=== PATIENT | female | born 1965 | race Two or more races ===

== ENCOUNTER 2022-03-01 01:13 | Inpatient (IN) | payer OTHER ==
[2022-03-01] VITALS (28 sets, daily range): BP systolic 72–129; BP diastolic 42–78
[~2022-03-01] VITALS: Ht 152.4 cm; Wt 54.4 kg
--- NOTE | 2022-03-01 01:20 | NUR ---
[id number] FROM [facility] FOR SOB. DX WITH PNEUMONIA TODAY. SATTING 88% RA ON 4L 97% NC. PATIENT IN BED 07 ON MONITOR AND POX AWAITING MD CALDERON.
[2022-03-01] MEDS ORDERED: PIPERACILLIN /TAZOBACTAM 3.375 G VIAL IV ONE (01:25)
[2022-03-01] MEDS ORDERED: VANCOMYCIN 1 GM VIAL ONE (01:25)
[2022-03-01] MEDS ORDERED: VANCOMYCIN 1 GM in IV D5W 250 ML IV ONE (01:30)
[2022-03-01] MEDS ORDERED: PIPERACILLIN /TAZOBACTAM 3.375 G in IV D5W 50 ML IV ONE (01:30)
--- NOTE | 2022-03-01 01:30 | NUR ---
COVID SWAB DONE AND SENT TO LAB
--- NOTE | 2022-03-01 01:30 | NUR ---
BLOOD AND CULTURES COLLECTED AND SENT TO LAB
--- NOTE | 2022-03-01 01:50 | NUR ---
INSERTED 16FR FC. URINE COLLECTED AND SENT TO LAB
--- NOTE | 2022-03-01 01:55 | NUR ---
ONCOLOGY COORDINATOR AT PT'S BEDSIDE
[2022-03-01 01:58] LABS: BASOPHILS % (AUTO) 0.5 % (0.0-2.0); HEMATOCRIT 41 % (33-45); HEMOGLOBIN 13.8 g/dL (11.5-14.8); LYMPHOCYTES # (AUTO) 1.1 K/uL (0.8-4.8); LYMPHOCYTES % (AUTO) 21.6 % (20.0-44.0); MEAN CORPUSCULAR HGB CONC 34 g/dl (31.0-36.0); MEAN CORPUSCULAR VOLUME 96 fL (82-100); MONOCYTES # (AUTO) 0.3 K/uL (0.1-1.30); MONOCYTES % (AUTO) 6.2 % (2.0-12.0); NEUTROPHILS # (AUTO) 3.5 K/uL (1.8-8.9); NEUTROPHILS % (AUTO) 71.7 % (43.0-81.0); PLATELET COUNT (AUTO) 274 K/uL (150-450); RED BLOOD CELL COUNT(AUTO) 4.26 MIL/uL (4.0-5.2); WHITE BLOOD COUNT (AUTO) 4.9 K/uL (4.3-11.0)
[2022-03-01 02:10] LABS: CALCIUM, SERUM 9.1 mg/dL (8.5-10.1); CARBON DIOXIDE 23 mmol/L (21-32); CHLORIDE 113 mmol/L (98-107); CREATININE 0.9 mg/dL (0.6-1.3); GLUCOSE 149 mg/dL (74-106); POTASSIUM 3.4 mmol/L (3.5-5.1); SODIUM SERUM 152 mmol/L (136-145); UREA NITROGEN, BLOOD 16 mg/dL (7-18)
[2022-03-01 02:24] LABS: ALANINE AMINOTRANSFERASE 24 U/L (12-78); ALKALINE PHOSPHATASE 41 U/L (46-116); ASPARTATE AMINOTRANSFERASE 12 U/L (15-37); BILIRUBIN,DIRECT 0.2 mg/dL (0.0-0.2); BILIRUBIN,TOTAL 0.9 mg/dL (0.2-1.0); TOTAL PROTEIN, SERUM 8.1 g/dL (6.4-8.2)
--- NOTE | 2022-03-01 02:24 | NUR ---
LACTIC ACID 2.1; DR. SHANT OCHOA AWARE
[2022-03-01 02:29] LABS: BILIRUBIN,URINE NEGATIVE (NEGATIVE); COLOR,URINE YELLOW (YELLOW); LEUKOCYTE ESTERASE ,URINE NEGATIVE (NEGATIVE); NITRITE, URINE NEGATIVE (NEGATIVE); PH,URINE 5.5 (5.0-8.0); PROTEIN,URINE 100 mg/dl (NEGATIVE); UGLUCOSE NEGATIVE (NEGATIVE)
[2022-03-01] MEDS ORDERED: SENN-18 PO (03:54)
[2022-03-01] MEDS ORDERED: RISP1TAB7 PO (03:54)
[2022-03-01] MEDS ORDERED: RISP0.5T65 PO (03:54)
[2022-03-01] MEDS ORDERED: APIX2.5T PO (03:54)
[2022-03-01] MEDS ORDERED: CYAN-51 PO (03:54)
[2022-03-01] MEDS ORDERED: LEVO25TA7 PO (03:54)
[2022-03-01] MEDS ORDERED: DOCU-141 PO (03:54)
[2022-03-01] MEDS ORDERED: IPRA3AMP23 IH ×2 (03:54→07:33)
[2022-03-01] MEDS ORDERED: AZIT250T13 PO (03:54)
[2022-03-01] MEDS ORDERED: CEFT1VIA15 IV (03:54)
[2022-03-01] MEDS ORDERED: MIRT-119 PO (03:54)
[2022-03-01] MEDS ORDERED: ASCO500T21 PO (03:54)
[2022-03-01] MEDS ORDERED: MEGE400O4 PO (03:54)
[2022-03-01] MEDS ORDERED: FAMO20TA8 PO (03:54)
[2022-03-01] MEDS ORDERED: MULT-447 PO (03:54)
--- NOTE | 2022-03-01 04:18 | NUR ---
DR. FERRIS DO ON PHONE CALL WITH DR. DALEY
[2022-03-01] MEDS ORDERED: IV NS 0.9% 1,000 ML BAG IV ONE (04:30)
[2022-03-01] MEDS ORDERED: IV NS 0.9% 1,000 ML IV PRN (05:30)
[2022-03-01] MEDS ORDERED: ACETAMINOPHEN 325 MG TABLET PO PRN ×2 (05:30→09:00)
--- NOTE | 2022-03-01 05:41 | NUR ---
PRINT SHOP MANAGER AT PT'S BEDSIDE
[2022-03-01 05:56] LABS: BASOPHILS % (AUTO) 0.7 % (0.0-2.0); EOSINOPHILS % (AUTO) 0.1 % (0.0-6.0); HEMATOCRIT 38 % (33-45); HEMOGLOBIN 12.7 g/dL (11.5-14.8); LYMPHOCYTES # (AUTO) 0.8 K/uL (0.8-4.8); LYMPHOCYTES % (AUTO) 17.8 % (20.0-44.0); MEAN CORPUSCULAR HGB CONC 33 g/dl (31.0-36.0); MEAN CORPUSCULAR VOLUME 97 fL (82-100); MONOCYTES # (AUTO) 0.4 K/uL (0.1-1.30); NEUTROPHILS # (AUTO) 3.4 K/uL (1.8-8.9); NEUTROPHILS % (AUTO) 72.4 % (43.0-81.0); PLATELET COUNT (AUTO) 250 K/uL (150-450); RED BLOOD CELL COUNT(AUTO) 3.93 MIL/uL (4.0-5.2); WHITE BLOOD COUNT (AUTO) 4.6 K/uL (4.3-11.0)
--- NOTE | 2022-03-01 06:10 | NUR ---
CONSTRUCTION IRONWORKER HELPER CLOSING NOTE: PT NONVERBAL AND RESPONSIVE. TOLERATING 4LPM VIA SIMPLE MASK AT 98%. RESP EVEN AND NONLABORED. TELE MONITOR READS NSR 87 HR. RFA #24G S/L AND LFA #18G S/L @ 100ML/HR PATENT AND INTACT. F/C 16FR PATENT AND INTACT; DRAINING YELLOW URINE WELL. SMALL BM NOTED. PT KEPT CLEAN AND DRY. OPEN SKIN NOTED TO RIGHT BUTTOCK& REPOSITIONED PT. SAFETY MEASURES IN PLACE.
[2022-03-01 07:02] LABS: CALCIUM, SERUM 8.6 mg/dL (8.5-10.1); CREATININE 0.8 mg/dL (0.6-1.3); POTASSIUM 3.1 mmol/L (3.5-5.1)
[2022-03-01] MEDS ORDERED: ACET-868 PO (07:33)
[2022-03-01] MEDS ORDERED: RISP0.2515 PO ×2 (07:33)
[2022-03-01] MEDS ORDERED: MAGN400O6 PO (07:33)
[2022-03-01] MEDS ORDERED: BISA10SU11 RC (07:33)
[2022-03-01] MEDS ORDERED: ONDA4TAB5 PO (07:33)
[2022-03-01] MEDS ORDERED: NA P133E RC (07:33)
[2022-03-01] MEDS ORDERED: TRAM-351 PO (07:33)
--- NOTE | 2022-03-01 07:49 | NUR ---
GOING TO 311.2
--- NOTE | 2022-03-01 07:53 | NUR ---
report given to Elizabeth CRUZ to continue care.
--- NOTE | 2022-03-01 08:30 | NUR ---
GARNISHER NOTES RECEIVED PT FROM E.R. STAFF VIA DEYA, PT IS AWAKE, ABLE TO TRACK, NO SIGN OF PAIN OR DISTRESS, ASSISTED TO BED, PT IS NON VERBAL, MADE COMFORTABLE, ON O2 AT 4LPM VIA N/C WITH O2 SAT OF 100%, VITALS TAKEN AND RECORDED, ADMITTING ORDERS RECEIVED FROM DR. DALEY.
--- NOTE | 2022-03-01 08:50 | NUR ---
CRISIS THERAPIST NOTES PT SEEN AND EXAMINED BY DR. DALEY, ORDERS GIVEN.
[2022-03-01] MEDS ORDERED: Medication Not On Formulary EA (Ipratropium/Albuterol Sulfate (Duoneb 2.5-0.5 Mg/3 Ml So IH PRN (09:00)
[2022-03-01] MEDS ORDERED: FAMOTIDINE (20 MG) 20 MG TABLET PO SCH (09:00)
[2022-03-01] MEDS ORDERED: APIXABAN 2.5 MG TABLET PO SCH (09:00)
[2022-03-01] MEDS ORDERED: IV NS 0.9% 500 ML IV ONE ×2 (09:00→19:00)
--- NOTE | 2022-03-01 09:00 | NUR ---
DRYING ROOM ATTENDANT NOTES PT SEEN AND EXAMINED BY LUÍS FONSECA, RECOMMENDATIONS GIVEN, DR. DALEY INFORMED.
[2022-03-01] MEDS: ENOXAPARIN SODIUM 40 MG/0.4 ML DISP.SYRIN SQ SCH (09:52)
[2022-03-01] MEDS: Potassium Chloride 20 MEQ in IV D5/0.45 NACL 1,000 ML IV SCH ×2 (09:53→18:53)
[2022-03-01] MEDS ORDERED: PIPERACILLIN /TAZOBACTAM 3.375 G in IV D5W 50 ML IV SCH (10:00)
[2022-03-01] MEDS: POTASSIUM CHLORIDE 10 MEQ/50 ML PREMIXED IVPB FOR PERIPHERAL LINE IV SCH ×4 (10:26→21:42)
[2022-03-01] MEDS: PIPERACILLIN /TAZOBACTAM 3.375 G in IV D5W 100 ML IV SCH ×2 (10:56→18:08)
[2022-03-01] MEDS ORDERED: ALBUTEROL FS 2.5 MG/0.5 ML VIAL.NEB NEB PRN (13:30)
[2022-03-01] MEDS ORDERED: IPRATROPIUM NEB FS 0.5 MG/2.5 ML AMPUL.NEB NEB PRN (13:30)
[2022-03-01] MEDS ORDERED: IV NS 0.9% 250 ML IV ONE (13:40)
[2022-03-01] MEDS ORDERED: IOHEXOL-350 100 ML VIAL IV ONE (13:40)
[2022-03-01] MEDS ORDERED: CT SWABBABLE VALVE TRANS SET 1 EA INFUS.SET MC ONE (13:40)
--- NOTE | 2022-03-01 13:43 | NUR ---
HORSE GROOMER NOTES ORDER RECEIVED FOR CT PULMONARY ANGIOGRAPHY, CONSENT OBTAINED FROM PT'S SISTER HERO MOSQUEDA VIA PHONE, VERIFIED WITH GERALD CRUZ.
[2022-03-01] MEDS ORDERED: VANCOMYCIN 0.75 GM in IV D5W 250 ML IV SCH (14:00)
--- NOTE | 2022-03-01 15:33 | NUR ---
HABILITATION WORKER NOTES CT PULMONARY ANGIO RESULT SENT TO DR. DALEY, NO NEW ORDER GIVEN.
[2022-03-01] MEDS ORDERED: IV 1/2NS 1000 ML 500 ML IV ONE (16:00)
--- NOTE | 2022-03-01 16:00 | NUR ---
MASTER OF CEREMONIES NOTES BP 84/54, NOT IN DISTRESS, DR. DALEY ORDERED TO GIVE 1/2 NS 500 ML BOLUS.
[2022-03-01] MEDS: ALBUTEROL FS 2.5 MG/0.5 ML VIAL.NEB NEB SCH ×2 (16:33→23:30)
[2022-03-01] MEDS: IPRATROPIUM NEB FS 0.5 MG/2.5 ML AMPUL.NEB NEB SCH ×2 (16:33→23:30)
--- NOTE | 2022-03-01 18:30 | NUR ---
RN NOTES RECEIVED PT FROM 3W IN ROOM 259 ICU STATUS , PT OPENS EYES TO PAINFUL STIMULI, ANSWER TO YES AND NO QUESTION , PT ON 2L N/C , RESPIRATION EVEN AND UNLABORED , SBP IN LOW 80'S , ON TELE SB HR IN 50'S , DR DALEY NOTIFED REGRADING PT'S STATUS , NEW ORDER RECEIVED , CONTINUE TO MONITOR .
--- NOTE | 2022-03-01 18:45 | NUR ---
INLAYER NOTES PT IS AROUSABLE TO NAME AND PAIN, ON O2 AT 4LPM VIA N/C WITH O2 SAT OF 98%, PT'S CURRENT BP 82/48 HR 61 AFTER BOLUS, DR. DALEY INFORMED, ORDERS RECEIVED TO TRANSFER PT TO ICU VIA ACLS PROTOCOL, PT RECEIVED BY PROCESS PLANT OPERATOR KIANNA FOR CONTINUITY OF CARE.
[2022-03-01] MEDS: NOREPINEPHRINE 8 MG in IV NS 0.9% 242 ML IV PRN (18:55)
[2022-03-01] MEDS: IV NS 0.9% 250 ML IV PRN (21:22)
[2022-03-02] VITALS (80 sets, daily range): BP systolic 67–126; BP diastolic 38–80
[2022-03-02] MEDS: PIPERACILLIN /TAZOBACTAM 3.375 G in IV D5W 100 ML IV SCH ×3 (01:32→17:16)
[2022-03-02 04:58] LABS: CALCIUM, SERUM 7.7 mg/dL (8.5-10.1); CREATININE 0.6 mg/dL (0.6-1.3); POTASSIUM 2.9 mmol/L (3.5-5.1)
[2022-03-02] MEDS: Potassium Chloride 20 MEQ in IV D5/0.45 NACL 1,000 ML IV SCH ×2 (05:16→15:06)
--- NOTE | 2022-03-02 07:21 | NUR ---
RN NOTES ENDORSED CARE OF PATIENT TO AM NURSE, PATIENT IS IN BED, NON-INTERRACTIVE, HISTORY OF DOWN SYNDROME. PATIENT IS ON O2 THERAPY VIA NC AT 3 L/MIN, NO RESPIRATORY DISTRESS NOTED. PICC LINE INSERTION FOR LEVO DRIP DURING THIS SHIFT. LEVO DRIP CURRENTLY RUNNING AT 0.1 MCG/KG/MIN. COTO CATH IN PLACE, TOTAL URINE OUTPUT FOR SHIFT IS 1,300 ML. NO SIGNIFICANT FINDINGS UPON ALL NURSING ASSESSMENTS. ENDORSED CARE OF PATIENT TO AM NURSE FOR RAZ.
--- NOTE | 2022-03-02 07:27 | NUR ---
WOUND CARE CONSULT: PT PRESENTS WITH SCARRING TO BILATERAL HEELS AND SACRAL INTACT DEEP TISSUE INJURY WITH SURROUNDING SCARRING, PRESENT ON ADMISSION. PT IS INCONTINENT OF STOOL. CHICA BLUNT NOTED. RECOMMENDATIONS MADE FOR SKIN PROTECTION. DISCUSSED WITH NURSING STAFF. IN AGREEMENT WITH PLAN OF CARE. Addendum: 03/02/22 at 0728 by LATA ALEX WNDNU Amended: Links added.
[2022-03-02] MEDS ORDERED: LEVOTHYROXINE SODIUM 25 MCG TABLET PO SCH (07:30)
[2022-03-02] MEDS ORDERED: Z GUARD REMEDY 4 OZ OINT TP PRN (07:30)
--- NOTE | 2022-03-02 07:30 | NUR ---
RN NOTES PT FOUND SEMI FOWLERS DISPLAYING NO S/S OF DISTRESS, FLACC = 0 AND BREATHING IS EVEN AND UNLABORED ON 3L O2 NC. R UA PICC IS PATIENT AND INTACT. COTO CATH RESERVOIR BELOW PATIENT DRAINING BY GRAVITY. RN WILL CONTINUE CARE PLAN AND ANTICIPATE NEEDS. SAFETY MEASURES IN PLACE, BED LOCKED AND IN LOWEST POSITION, SIDE RAILS UPX2, CALL LIGHT WITHIN REACH, BED ALARM ARMED.
[2022-03-02] MEDS: ALBUTEROL FS 2.5 MG/0.5 ML VIAL.NEB NEB SCH ×3 (08:13→23:29)
[2022-03-02] MEDS: IPRATROPIUM NEB FS 0.5 MG/2.5 ML AMPUL.NEB NEB SCH ×3 (08:13→23:29)
[2022-03-02] MEDS: Z GUARD REMEDY 4 OZ OINT TP SCH (08:30)
--- NOTE | 2022-03-02 08:30 | NUR ---
MD COMMUNICATION RN SPOKE TO MD DALEY, GAVE ORDERS: KEEP NPO FOR 24 HOURS, WILL ASSESS NEED FOR NGT ON 03/03. ALSO WANTED PROTOCOL FOR LEVOPHED TITRATION TO BE KEEP SBP > 90. RN ACKNOWLEDGED AND WILL EXECUTE ORDERS.
[2022-03-02] MEDS: ENOXAPARIN SODIUM 40 MG/0.4 ML DISP.SYRIN SQ SCH (08:31)
[2022-03-02] MEDS: POTASSIUM CHLORIDE 10 MEQ/50 ML PREMIXED IVPB FOR PERIPHERAL LINE IV SCH ×6 (09:02→14:36)
[2022-03-02] MEDS: NOREPINEPHRINE 8 MG in IV NS 0.9% 242 ML IV PRN (16:56)
--- NOTE | 2022-03-02 19:30 | NUR ---
RN NOTES PT LAYING SEMI FOWLERS ON BED DISPLAYING NO S/S OF DISTRESS, FLACC = 0 AND BREATHING IS EVEN AND UNLABORED ON RA. R UA PICC IS PATIENT AND INTACT. COTO CATHETER IS PATENT AND DRAINING BELOW THE BLADDER. PT A&OX1-2. ALL SAFETY FALL PRECAUTIONS IN PLACE, BED LOCKED AND IN LOWEST POSITION, SIDE RAILS UPX2, BED ALARM ON, CALL LIGHT WITHIN REACH, BED. WILL CONTINUE TO MONITOR.
--- NOTE | 2022-03-02 19:50 | NUR ---
RN NOTES PT FOUND SEMI FOWLERS DISPLAYING NO S/S OF DISTRESS, FLACC = 0 AND BREATHING IS EVEN AND UNLABORED ON RA. R UA PICC IS PATIENT AND INTACT. COTO CATH RESERVOIR BELOW PATIENT DRAINING BY GRAVITY. PT MORE ALERT COMPARED TO MORNING, INTERACTING MORE WITH ENVIRONMENT. SBAR AND REPORT GIVEN TO JAVA LEAD ENGINEER RN, ALL QUESTIONS ANSWERED. SAFETY MEASURES IN PLACE, BED LOCKED AND IN LOWEST POSITION, SIDE RAILS UPX2, CALL LIGHT WITHIN REACH, BED ALARM ARMED. PT ENDORSED IN STABLE CONDITION FOR RAZ.
--- NOTE | 2022-03-02 20:00 | NUR ---
RN/NOTE COOLING MEASURES WERE PROVIDED. BLANKET WAS REMOVED, AND ICE PACK WAS PROVIDED.
[2022-03-03] VITALS (77 sets, daily range): BP systolic 73–136; BP diastolic 28–81
[2022-03-03] MEDS: PIPERACILLIN /TAZOBACTAM 3.375 G in IV D5W 100 ML IV SCH ×3 (01:08→18:13)
[2022-03-03] MEDS: Potassium Chloride 20 MEQ in IV D5/0.45 NACL 1,000 ML IV SCH ×3 (01:08→22:07)
[2022-03-03 04:57] LABS: BASOPHILS % (AUTO) 0.6 % (0.0-2.0); EOSINOPHILS % (AUTO) 0.9 % (0.0-6.0); HEMATOCRIT 34 % (33-45); HEMOGLOBIN 11.4 g/dL (11.5-14.8); LYMPHOCYTES # (AUTO) 1.3 K/uL (0.8-4.8); LYMPHOCYTES % (AUTO) 19.3 % (20.0-44.0); MEAN CORPUSCULAR HGB CONC 34 g/dl (31.0-36.0); MEAN CORPUSCULAR VOLUME 96 fL (82-100); MONOCYTES # (AUTO) 0.5 K/uL (0.1-1.30); MONOCYTES % (AUTO) 7.6 % (2.0-12.0); NEUTROPHILS % (AUTO) 71.6 % (43.0-81.0); PLATELET COUNT (AUTO) 240 K/uL (150-450); RED BLOOD CELL COUNT(AUTO) 3.53 MIL/uL (4.0-5.2)
[2022-03-03 05:26] LABS: CALCIUM, SERUM 7.7 mg/dL (8.5-10.1); CREATININE 0.7 mg/dL (0.6-1.3); MAGNESIUM 1.3 mg/dL (1.8-2.4); POTASSIUM 4.1 mmol/L (3.5-5.1)
--- NOTE | 2022-03-03 07:30 | NUR ---
RN NOTES PT FOUND SEMI FOWLERS DISPLAYING NO S/S OF DISTRESS, FLACC = 0 AND BREATHING IS EVEN AND UNLABORED ON RA. R UA PICC IS PATIENT AND INTACT. COTO CATH RESERVOIR BELOW PATIENT DRAINING BY GRAVITY. LEARNING FACILITATOR RN GAVE SBAR AND REPORT. RN WILL CONTINUE CARE PLAN AND ANTICIPATE NEEDS. SAFETY MEASURES IN PLACE, BED LOCKED AND IN LOWEST POSITION, SIDE RAILS UPX2, CALL LIGHT WITHIN REACH, BED ALARM ARMED.
[2022-03-03] MEDS: IPRATROPIUM NEB FS 0.5 MG/2.5 ML AMPUL.NEB NEB SCH ×3 (08:05→23:32)
[2022-03-03] MEDS: ALBUTEROL FS 2.5 MG/0.5 ML VIAL.NEB NEB SCH ×3 (08:05→23:32)
[2022-03-03] MEDS: Magnesium 1GM/D5W 100ML PREMIX 100 ML IV SCH ×3 (08:50→10:55)
[2022-03-03] MEDS: Z GUARD REMEDY 4 OZ OINT TP SCH (08:51)
[2022-03-03] MEDS: ENOXAPARIN SODIUM 40 MG/0.4 ML DISP.SYRIN SQ SCH (08:51)
--- NOTE | 2022-03-03 10:00 | NUR ---
MD COMMUNICATION RN INFORMED DR DALEY OF RESULTS FROM [facility]. STATED TO NOT START NGT. RN ACKNOWLEDGED AND WILL NOT INSERT NGT.
[2022-03-03] MEDS: NOREPINEPHRINE 8 MG in IV NS 0.9% 242 ML IV PRN (18:44)
--- NOTE | 2022-03-03 19:15 | NUR ---
RN NOTES PT FOUND SEMI FOWLERS DISPLAYING NO S/S OF DISTRESS, FLACC = 0 AND BREATHING IS EVEN AND UNLABORED ON RA. R UA PICC IS PATIENT AND INTACT. COTO CATH RESERVOIR BELOW PATIENT DRAINING BY GRAVITY. SBAR AND REPORT GIVEN TO MEDICAL RECORDS FIELD TECHNICIAN, ALL QUESTIONS ANSWERED. SAFETY MEASURES IN PLACE, BED LOCKED AND IN LOWEST POSITION, SIDE RAILS UPX2, CALL LIGHT WITHIN REACH, BED ALARM ARMED. PT ENDORSED IN STABLE CONDITION FOR RAZ.
[2022-03-04] VITALS (87 sets, daily range): BP systolic 51–151; BP diastolic 20–102
--- NOTE | 2022-03-04 01:30 | NUR ---
ICU/SHOP TAILOR STENCIL MAKER NURSE WAS TITRATING UP THE LEVO FOR LOW BLOOD PRESSURE. WILL CONTINUE TO MONITOR THIS PT AND HER BLOOD PRESSURE.
[2022-03-04] MEDS: PIPERACILLIN /TAZOBACTAM 3.375 G in IV D5W 100 ML IV SCH ×3 (01:57→17:08)
[2022-03-04 04:46] LABS: BASOPHILS % (AUTO) 0.3 % (0.0-2.0); EOSINOPHILS % (AUTO) 1.6 % (0.0-6.0); HEMATOCRIT 36 % (33-45); HEMOGLOBIN 12.2 g/dL (11.5-14.8); LYMPHOCYTES # (AUTO) 1.8 K/uL (0.8-4.8); LYMPHOCYTES % (AUTO) 33.7 % (20.0-44.0); MEAN CORPUSCULAR HGB CONC 34 g/dl (31.0-36.0); MEAN CORPUSCULAR VOLUME 95 fL (82-100); MONOCYTES # (AUTO) 0.5 K/uL (0.1-1.30); MONOCYTES % (AUTO) 8.7 % (2.0-12.0); NEUTROPHILS # (AUTO) 2.9 K/uL (1.8-8.9); NEUTROPHILS % (AUTO) 55.7 % (43.0-81.0); PLATELET COUNT (AUTO) 256 K/uL (150-450); RED BLOOD CELL COUNT(AUTO) 3.82 MIL/uL (4.0-5.2); WHITE BLOOD COUNT (AUTO) 5.3 K/uL (4.3-11.0)
[2022-03-04 05:00] LABS: CREATININE 0.6 mg/dL (0.6-1.3); MAGNESIUM 2.4 mg/dL (1.8-2.4); POTASSIUM 3.5 mmol/L (3.5-5.1)
[2022-03-04] MEDS: IPRATROPIUM NEB FS 0.5 MG/2.5 ML AMPUL.NEB NEB SCH ×3 (07:13→23:15)
[2022-03-04] MEDS: ALBUTEROL FS 2.5 MG/0.5 ML VIAL.NEB NEB SCH ×3 (07:13→23:15)
[2022-03-04] MEDS: Potassium Chloride 20 MEQ in IV D5/0.45 NACL 1,000 ML IV SCH ×2 (08:45→16:50)
[2022-03-04] MEDS: Z GUARD REMEDY 4 OZ OINT TP SCH (08:46)
[2022-03-04] MEDS: ENOXAPARIN SODIUM 40 MG/0.4 ML DISP.SYRIN SQ SCH (08:46)
--- NOTE | 2022-03-04 09:00 | NUR ---
ICU/RN DR DALEY SEEN THE PT .PT IS DNR.OK TO GIVE IV MEDS TO SUPPORT BP. PER FAMILY NO INTUBATION AND NO TUBE FEEDING.
[2022-03-04] MEDS: NOREPINEPHRINE 8 MG in IV NS 0.9% 242 ML IV PRN (14:07)
[2022-03-04] MEDS: IV NS 0.9% 250 ML IV PRN (16:52)
--- NOTE | 2022-03-04 18:00 | NUR ---
ICU/RN DUE MEDS ARE GIVEN ORDERED.PM CARE PROVIDED.PT IS ON LEVOPHED DRIP.AND IV FLUIDS.REPOSITION FOR COMFORT.
[2022-03-05] VITALS (96 sets, daily range): BP systolic 64–128; BP diastolic 26–87
[2022-03-05] MEDS: PIPERACILLIN /TAZOBACTAM 3.375 G in IV D5W 100 ML IV SCH ×3 (02:07→17:00)
[2022-03-05] MEDS: Potassium Chloride 20 MEQ in IV D5/0.45 NACL 1,000 ML IV SCH ×2 (06:24→21:48)
[2022-03-05] MEDS: IPRATROPIUM NEB FS 0.5 MG/2.5 ML AMPUL.NEB NEB SCH ×3 (08:06→23:43)
[2022-03-05] MEDS: ALBUTEROL FS 2.5 MG/0.5 ML VIAL.NEB NEB SCH ×3 (08:06→23:43)
[2022-03-05] MEDS: ENOXAPARIN SODIUM 40 MG/0.4 ML DISP.SYRIN SQ SCH (09:00)
[2022-03-05] MEDS: Z GUARD REMEDY 4 OZ OINT TP SCH (09:00)
[2022-03-05] MEDS: NOREPINEPHRINE 8 MG in IV NS 0.9% 242 ML IV PRN (14:51)
--- NOTE | 2022-03-05 18:10 | NUR ---
RN CLOSING NOTE PT IN BED RESTING, PT IS A/O X 1-2. DELAYED, SOME VERBAL, LIMITED SPEECH. PT ON RA SATING AT 98%. TELE READS SR/SB. IV ACCESS NOTED ON JOSE PICC AND LFA 18G. INTACT AND PATENT RUNNING LEVO AT 0.1 MCG/KG/MIN. ALL SAFETY MEASURES IN PLACE, FALL PRECAUTIONS IN PLACE, WILL ENDORSE TO REAL ESTATE FINANCIAL ANALYST RN FOR RAZ.
[2022-03-06] VITALS (94 sets, daily range): BP systolic 81–147; BP diastolic 24–80
[2022-03-06] MEDS: PIPERACILLIN /TAZOBACTAM 3.375 G in IV D5W 100 ML IV SCH ×3 (02:02→17:25)
[2022-03-06 04:51] LABS: BASOPHILS # (AUTO) 0.1 K/uL (0.0-0.2); BASOPHILS % (AUTO) 1.2 % (0.0-2.0); EOSINOPHILS % (AUTO) 2.3 % (0.0-6.0); HEMATOCRIT 35 % (33-45); HEMOGLOBIN 11.6 g/dL (11.5-14.8); LYMPHOCYTES # (AUTO) 2.1 K/uL (0.8-4.8); LYMPHOCYTES % (AUTO) 44.9 % (20.0-44.0); MEAN CORPUSCULAR HGB CONC 33 g/dl (31.0-36.0); MEAN CORPUSCULAR VOLUME 97 fL (82-100); MONOCYTES # (AUTO) 0.6 K/uL (0.1-1.30); MONOCYTES % (AUTO) 12.1 % (2.0-12.0); NEUTROPHILS # (AUTO) 1.8 K/uL (1.8-8.9); NEUTROPHILS % (AUTO) 39.5 % (43.0-81.0); PLATELET COUNT (AUTO) 315 K/uL (150-450); RED BLOOD CELL COUNT(AUTO) 3.64 MIL/uL (4.0-5.2); WHITE BLOOD COUNT (AUTO) 4.6 K/uL (4.3-11.0)
[2022-03-06 05:05] LABS: CALCIUM, SERUM 8.3 mg/dL (8.5-10.1); CREATININE 0.7 mg/dL (0.6-1.3); MAGNESIUM 1.8 mg/dL (1.8-2.4); POTASSIUM 3.3 mmol/L (3.5-5.1)
[2022-03-06 05:45] LABS: THYROID STIMULATING HORMONE 7.343 uIU/mL (0.358-3.74)
[2022-03-06] MEDS: IPRATROPIUM NEB FS 0.5 MG/2.5 ML AMPUL.NEB NEB SCH ×3 (07:33→23:41)
[2022-03-06] MEDS: ALBUTEROL FS 2.5 MG/0.5 ML VIAL.NEB NEB SCH ×3 (07:33→23:41)
[2022-03-06] MEDS: Z GUARD REMEDY 4 OZ OINT TP SCH (09:24)
[2022-03-06] MEDS: ENOXAPARIN SODIUM 40 MG/0.4 ML DISP.SYRIN SQ SCH (09:27)
[2022-03-06] MEDS: POTASSIUM CL. PREMIX PERIPHER. 50 ML IV SCH ×2 (10:06→11:09)
[2022-03-06] MEDS: NOREPINEPHRINE 8 MG in IV NS 0.9% 242 ML IV PRN (10:07)
[2022-03-06] MEDS: HYDROCORTISONE SOD SUCCINATE 100 MG/2 ML VIAL IV SCH ×2 (12:15→21:37)
[2022-03-06] MEDS: Potassium Chloride 20 MEQ in IV D5/0.45 NACL 1,000 ML IV SCH (12:15)
[2022-03-06] MEDS ORDERED: POTASSIUM CHLORIDE 10 MEQ/50 ML PREMIXED IVPB FOR PERIPHERAL LINE IV SCH (12:30)
[2022-03-06] MEDS: POTASSIUM CHLORIDE 10 MEQ/50 ML PREMIXED IVPB FOR PERIPHERAL LINE IV SCH ×2 (12:53→13:54)
[2022-03-06] MEDS: IV NS 0.9% 250 ML IV PRN (13:55)
--- NOTE | 2022-03-06 17:07 | NUR ---
PT. NO SIGNIFICANT CHANGES NOTED AT THIS TIME; ALL NEEDS ATTENDED; BEDSIDE REPORT GIVEN TO YUE-RN FOR CONTINUITY OF CARE.
--- NOTE | 2022-03-06 20:30 | NUR ---
ICU/CO FOUNDER AND DIRECTOR PT IS CURRENTLY NPO, DUE TO THE FACT THAT SHE HAS FAILED SWOLLOW EVAL X2. PT CURRENTLY HAS A P.U.L.S.E THAT SAYS PT DOESN'T WANT ANY FEEDING TUBES. DR DALEY SPOKE TO FAMILY ABOUT G/TUBE PLACEMENT, HOWEVER FAMILY DECLINE. EDI ASKED ABOUT FAMILY'S PLAN OF CARE IF PT CAN'T RECOVER FROM THIS. SISTER SEGUNDO WHO IS DPOA, SAID FAMILY WOULD LIKE PT TO GO INTO HOSPICE. SEGUNDO EXPRESSED THAT SINCE JUNE 2021, PTS HEALTH HAS TAKEN A TURN FOR THE WORSE. PT ALSO HAS BEEN IN BED SINCE JUNE 2021. PT WAS IN THE [facility] A TRACK RUNNER. SEGUNDO EXPRESSED PT'S QUALITY OF LIFE HAS RAPIDLY DECLINE AND FEARS THAT PT WILL NOT RECOVERY. SOCIAL SERVICE EVAL WAS PLACED TO HELP FAMILY TRANSITION INTO HOSPICE CARE.
--- NOTE | 2022-03-06 23:00 | NUR ---
ICU/NARCOTICS AGENT @2130 LEVO WAS DECREASED DOWN FOR STABLE BLOOD PRESSURE 120'S @2230 LEVO WAS INCREASED FOR LOW BLOOD PRESSURE. WILL CONTINUE TO MONITOR THIS PT AND HER BLOOD PRESSURE.
[2022-03-07] VITALS (93 sets, daily range): BP systolic 75–134; BP diastolic 34–96
[2022-03-07] MEDS: Potassium Chloride 20 MEQ in IV D5/0.45 NACL 1,000 ML IV SCH ×2 (01:30→14:30)
[2022-03-07] MEDS: PIPERACILLIN /TAZOBACTAM 3.375 G in IV D5W 100 ML IV SCH ×3 (01:30→17:04)
[2022-03-07] MEDS: HYDROCORTISONE SOD SUCCINATE 100 MG/2 ML VIAL IV SCH ×3 (05:08→20:13)
[2022-03-07 05:16] LABS: CALCIUM, SERUM 8.3 mg/dL (8.5-10.1); CREATININE 0.8 mg/dL (0.6-1.3); POTASSIUM 3.4 mmol/L (3.5-5.1)
--- NOTE | 2022-03-07 07:30 | NUR ---
RN OPENING NOTE PT OBSERVED IN BED SLEEPING. PT IS ON RA TOLERATING WELL WITH NO SIGNS OF LABORED BREATHING OR DISTRESS O2 SAT 97%. PT IS NPO AT THIS TIME DUE TO NOT PASSING SWALLOW EVAL MULTIPLE TIMES. IV ACCESS JOSE PICC AND L FA 18G AND INFUSING WITH LEVO @ 0.06MCG AND D5 1/2 NS +20 mEQ KCL @75 ML/HR. BED IS LOCKED IN LOWEST POSITION X2 BED RAILS UP, CALL MOJICA IS WITHIN REACH AND ALL HOSPITAL SAFETY PRECAUTIONS ARE IN PLACE. WILL CONTINUE TO MONITOR THIS SHIFT.
[2022-03-07] MEDS: IPRATROPIUM NEB FS 0.5 MG/2.5 ML AMPUL.NEB NEB SCH ×3 (08:31→23:35)
[2022-03-07] MEDS: ALBUTEROL FS 2.5 MG/0.5 ML VIAL.NEB NEB SCH ×3 (08:31→23:35)
[2022-03-07] MEDS: MIDODRINE HCL (5MG) 5 MG TABLET PO SCH ×4 (09:00→16:33)
[2022-03-07] MEDS: Z GUARD REMEDY 4 OZ OINT TP SCH (09:28)
--- NOTE | 2022-03-07 09:30 | NUR ---
RN NOTE: MIDODRINE PT FAILED NURSE BEDSIDE SWALLOW EVAL COUGHING AFTER SPOONFUL OF WATER. UNABLE TO GIVE MEDICATION.
[2022-03-07] MEDS: ENOXAPARIN SODIUM 40 MG/0.4 ML DISP.SYRIN SQ SCH (09:38)
[2022-03-07] MEDS: POTASSIUM CL. PREMIX PERIPHER. 50 ML IV SCH ×2 (10:05→11:06)
--- NOTE | 2022-03-07 10:26 | NUR ---
RN NOTE: PHONE CALL THIS NURSE RECEIVED CALL FROM SISTER WHO IS DPOA AND REQUESTED TO NOT USE HOME PHONE NUMBER TO CONTACT HER IF NEEDED AND TO CONTINUE USING CELL PHONE: [phone].
[2022-03-07] MEDS: NOREPINEPHRINE 8 MG in IV NS 0.9% 242 ML IV PRN (11:44)
--- NOTE | 2022-03-07 12:22 | NUR ---
RN NOTE: MIDODRINE ATTEMPTED TO DO NURSE BEDSIDE SWALLOW EVAL AGAIN. PT COUGHING AFTER SPOONFUL OF WATER. UNABLE TO GIVE MEDICATION.
--- NOTE | 2022-03-07 16:34 | NUR ---
RN NOTE: MIDODRINE PT UNABLE TO SWALLOW ANYTHING AT THIS TIME WITHOUT COUGHING. WILL NOT GIVE MED.
[2022-03-07] MEDS: IV NS 0.9% 250 ML IV PRN (17:04)
--- NOTE | 2022-03-07 17:30 | NUR ---
RN NOTE: REPORT GIVEN TO ANTHONY DUGAN REPORT GIVEN TO ANTHONY DUGAN. PT IS STABLE AT THIS TIME.
--- NOTE | 2022-03-07 19:15 | NUR ---
RN OPENING NOTES RECEIVED PATIENT ON BED, DELAYED, SOME VERBAL, LIMITED. ON ROOM AIR SATING AT 95%. RESPIRATORY EVEN AND UNLABORED, NO SOB NOTED. AFEBRILE. NO S/S OF DISTRESS NOTED. WITH PICC LINE, LEFT FOREARM #18 PERIPHERAL LINE, PATENT, INTACT, FLUSHED WITH NS. NO S/S OF INFILTRATION NOTED. WITH IVF RUNNING WITH D5 1/2NS @ 75 ML/HR. LEVOPHED @ 0.06 MCG/KG/MIN. COTO CATHETER PATENT INTACT DRAINING CLEAR YELLOW URINE VIA GRAVITY. REPOSITION Q2HRS. ALL SAFETY PRECAUTION PROVIDED, BED IN LOWEST POSITION, LOCKED. BED ALARM ARMED. CALL LIGHT WITH IN REACH. CONTINUE TO MONITOR.
--- NOTE | 2022-03-07 19:29 | NUR ---
RN NOTES PT FOUND SEMI FOWLERS DISPLAYING NO S/S OF DISTRESS, FLACC = 0 AND BREATHING IS EVEN AND UNLABORED ON RA. R UA PICC IS PATIENT AND INTACT. COTO CATH RESERVOIR BELOW PATIENT DRAINING BY GRAVITY. SBAR AND REPORT GIVEN TO SAFETY ANALYST RN, ALL QUESTIONS ANSWERED. SAFETY MEASURES IN PLACE, BED LOCKED AND IN LOWEST POSITION, SIDE RAILS UPX2, CALL LIGHT WITHIN REACH, BED ALARM ARMED. PT ENDORSED IN STABLE CONDITION FOR RAZ.
[2022-03-08] VITALS (69 sets, daily range): BP systolic 78–146; BP diastolic 30–104
[2022-03-08] MEDS: PIPERACILLIN /TAZOBACTAM 3.375 G in IV D5W 100 ML IV SCH ×3 (01:57→18:14)
[2022-03-08 03:39] LABS: BASOPHILS % (AUTO) 0.1 % (0.0-2.0); HEMATOCRIT 33 % (33-45); HEMOGLOBIN 10.8 g/dL (11.5-14.8); LYMPHOCYTES # (AUTO) 1.2 K/uL (0.8-4.8); LYMPHOCYTES % (AUTO) 17.5 % (20.0-44.0); MEAN CORPUSCULAR HGB CONC 33 g/dl (31.0-36.0); MEAN CORPUSCULAR VOLUME 97 fL (82-100); MONOCYTES # (AUTO) 0.3 K/uL (0.1-1.30); MONOCYTES % (AUTO) 4.3 % (2.0-12.0); NEUTROPHILS # (AUTO) 5.2 K/uL (1.8-8.9); NEUTROPHILS % (AUTO) 78.1 % (43.0-81.0); PLATELET COUNT (AUTO) 374 K/uL (150-450); RED BLOOD CELL COUNT(AUTO) 3.36 MIL/uL (4.0-5.2); WHITE BLOOD COUNT (AUTO) 6.6 K/uL (4.3-11.0)
[2022-03-08 03:52] LABS: CALCIUM, SERUM 8.2 mg/dL (8.5-10.1); CREATININE 0.8 mg/dL (0.6-1.3); POTASSIUM 2.9 mmol/L (3.5-5.1)
[2022-03-08] MEDS: Potassium Chloride 20 MEQ in IV D5/0.45 NACL 1,000 ML IV SCH ×2 (03:57→18:14)
[2022-03-08] MEDS: HYDROCORTISONE SOD SUCCINATE 100 MG/2 ML VIAL IV SCH ×2 (05:30→12:32)
--- NOTE | 2022-03-08 07:25 | NUR ---
RN NOTES PT FOUND SEMI FOWLERS, APPEARS TO BE SLEEPING, DISPLAYING NO S/S OF DISTRESS, FLACC = 0 AND BREATHING IS EVEN AND UNLABORED ON RA. R UA PICC IS PATIENT AND INTACT. COTO CATH RESERVOIR BELOW PATIENT DRAINING BY GRAVITY. RN WILL CONTINUE CARE PLAN ANTICIPATE NEEDS. SAFETY MEASURES IN PLACE, BED LOCKED AND IN LOWEST POSITION, SIDE RAILS UPX2, CALL LIGHT WITHIN REACH, BED ALARM ARMED.
[2022-03-08] MEDS: IPRATROPIUM NEB FS 0.5 MG/2.5 ML AMPUL.NEB NEB SCH ×2 (07:32→15:20)
[2022-03-08] MEDS: ALBUTEROL FS 2.5 MG/0.5 ML VIAL.NEB NEB SCH ×2 (07:32→15:20)
[2022-03-08] MEDS: MIDODRINE HCL (5MG) 5 MG TABLET PO SCH (08:34)
[2022-03-08] MEDS ORDERED: HYDROCORTISONE SOD SUCCINATE 100 MG/2 ML VIAL IV SCH (09:00)
[2022-03-08] MEDS: POTASSIUM CHLORIDE 10 MEQ/50 ML PREMIXED IVPB FOR PERIPHERAL LINE IV SCH ×4 (09:12→12:33)
[2022-03-08] MEDS: ENOXAPARIN SODIUM 40 MG/0.4 ML DISP.SYRIN SQ SCH (09:12)
[2022-03-08] MEDS: Z GUARD REMEDY 4 OZ OINT TP SCH (09:13)
--- NOTE | 2022-03-08 10:32 | NUR ---
DRILL RIG OPERATOR TIRSODaniela TRANSLATIONS SYSTEM USED, TRANSLATING PORTUGUESE TO BULGARIAN. DR SAHU IS COMMUNICATING TO PT'S MOTHER VIA DRILL RIG OPERATOR [facility] [place] ID # [id number].
--- NOTE | 2022-03-08 11:34 | NUR ---
SS consult requested for hospice placement. Per complex case manager, this pt. as [facility] and they have been informed of request for Hospice. [facility] to follow up with hospice placement/care.
--- NOTE | 2022-03-08 18:31 | NUR ---
MD COMMUNICATION RN SPOKE TO DR. EDI MD GAVE ORDERS: CHANGE CODE STATUS TO COMFORT CARE MEASURES, STOP LEVOPHED, POTASSIUM CHLORIDE, ZOSYN AND ALL OTHER TREATMENT. ZOFRAN 4MG IV Q2HR PRN, ATIVAN 2MG IV Q2H PRN AND MORPHINE 4MG IV Q2H, SCOPOLAMINE PATCH FOR COMFORT. RN ACKNOWLEDGED, DOUBLE CHECKED WITH PROVIDER, CONFIRMED ORDERS AND WILL EXECUTE.
[2022-03-08] MEDS ORDERED: ONDANSETRON HCL/PF 4 MG/2 ML VIAL IV PRN (19:00)
[2022-03-08] MEDS ORDERED: LORAZEPAM INJ 2 MG/ML VIAL IV PRN (19:00)
[2022-03-08] MEDS ORDERED: SCOPOLAMINE PATCH 1 MG/72HR TD SCH (19:00)
[2022-03-08] MEDS ORDERED: MORPHINE SULFATE INJ 4 MG/ML DISP.SYRIN IV PRN (19:00)
--- NOTE | 2022-03-08 19:20 | NUR ---
RN NOTES PT FOUND SEMI FOWLERS DISPLAYING NO S/S OF DISTRESS, FLACC = 0 AND BREATHING IS EVEN AND UNLABORED ON RA. R UA PICC IS PATIENT AND INTACT. COTO CATH RESERVOIR BELOW PATIENT DRAINING BY GRAVITY. FAMILY IN ROOM PT IS NOW COMFORT MEASURES ONLY. SBAR AND REPORT GIVEN TO DERRICK OPERATOR RN, ALL QUESTIONS ANSWERED. SAFETY MEASURES IN PLACE, BED LOCKED AND IN LOWEST POSITION, SIDE RAILS UPX2, CALL LIGHT WITHIN REACH, BED ALARM ARMED.
--- NOTE | 2022-03-08 21:10 | NUR ---
ACTUARY MANAGER. INITIAL ASSESSMENT. RECEIVED THE PT REST IN BED. AWAKE, ALERT. FAMILY AT BED SIDE. HOB ELEVATED. PT IS ON COMFORT MEASURE. FC PATENT. WILL CONTINUE TO MONITOR VITALS.
--- NOTE | 2022-03-08 21:55 | NUR ---
SILVICULTURE TEACHER. MORPHINE NOT GIVEN. PT IS AWAKE, ALERT. FOLLOW COMMANDS. PT FAMILY AT BED SIDE. PT SISTER STATED, IF PT HAS TACHYPNEIC GIVE MORPHINE. NO RESPIRATORY DISTRESS NOTED.
--- NOTE | 2022-03-08 22:21 | NUR ---
REPORT GIVEN TO RADHA CRUZ, TRANSFER THE PT TO ROOM 108.
--- NOTE | 2022-03-08 22:30 | NUR ---
RN NOTES TRANSFERRED PT FROM ICU TO ROOM 108. PT ON RA, TOLERATING WELL, BREATHING IS EVEN AND UNLABORED ON RA. WITH JOSE PICC, PATIENT AND INTACT. COTO CATH RESERVOIR BELOW PATIENT DRAINING BY GRAVITY. ACCOMPANIED BY FAMILY MEMBERS BESIDE PT, COMFORT MEASURES ONLY. SAFETY MEASURES IN PLACE, BELONGINGS CHECKED AND PLACED ON CHART, BED LOCKED AND IN LOWEST POSITION, SIDE RAILS UPX2, CALL LIGHT WITHIN REACH, BED ALARM ARMED. WILL CONTINUE TO MONITOR.
--- NOTE | 2022-03-09 06:25 | NUR ---
RN CLOSING NOTES PT RESTING COMFORTABLY IN BED, BREATHING IS EVEN AND UNLABORED ON RA. WITH JOSE PICC AND LFA SL, INTACT, PATENT, AND FLUSHING WELL, PATIENT ON COMFORT MEASURES ONLY. SAFETY PRECAUTIONS IN PLACE, KEPT PATIENTDRY AND CLEAN, BED LOCKED AND IN LOWEST POSITION, SIDE RAILS UPX2, CALL LIGHT WITHIN REACH, BED ALARM ARM ON. WILL ENDORSE TO AM SHIFT NURSE.
--- NOTE | 2022-03-09 07:30 | NUR ---
RN OPENING NOTE PATIENT IS IN BED AWAKE, ALERT ORIENTED X 2. ON ROOM AIR WITH OXYGEN SATURATION AT 100%. NPO OF THIS TIME. BREATHING UNLABORED AND NOT IN ANY FORM OF DISTRESS. RIGHT UPPER ARM PICC LINE INTACT AND PATENT. LEFT FOREARM SALINE LOCK INTACT AND PATENT. COTO CATHETER INTACT AND DRAINING TO A CLEAR YELLOW URINE. BED IS LOCKED IN LOWEST POSITION, 3 SIDE RAILS UP, CALL LIGHT WITHIN REACH. WILL CONTINUE TO MONITOR THROUGHOUT SHIFT.
[2022-03-09] MEDS: Z GUARD REMEDY 4 OZ OINT TP SCH (09:52)
[2022-03-09 10:00] VITALS: BP 93/55
--- NOTE | 2022-03-09 15:32 | NUR ---
Request for Clinical Informaticist: SW was notified by [facility] that family is requesting last rights for pt. on comfort care. JANUARY called [facility] [[id number], [place] [address] ] and spoke to litigation legal secretary , Diana stating that she would notify the hard rock drill operator who should eb able to come by at this time. JANUARY notified [facility].
--- NOTE | 2022-03-09 18:04 | NUR ---
faxed to admitting admission orders for hospice awaits new account number for [facility].
--- NOTE | 2022-03-09 18:52 | NUR ---
RN NOTE PATIENT REMAINED STABLE THROUGHOUT SHIFT AND IS NOW UNDER HOSPICE CARE. PATIENT IS ASLEEP BUT IS EASILY AROUSABLE, ALERT AND ORIENTED X 1. ALL IV LINES INTACT AND PATENT, COTO CATHETER REMAINS IN PLACE. ALL HOSPITAL SAFETY PRECAUTIONS IN PLACE. WILL ENDORSE [facility] SHIFT NURSE.
== END 2022-03-09 18:10 | disposition hospice, inpatient (51) | DRG 871 ==
LOC: ER 01:15 → MED 07:51 → TELE 09:09 → ICU 18:31 → MEDSG1 03-08 22:33
PROVIDERS: ADMIT Internal Medicine; ATTEND Internal Medicine
PROC: 02HV33Z Insertion of Infusion Device into Superior Vena Cava, Percutaneous Approach (ICD-10-PCS; principal; 2022-03-01)
PROC: B548ZZA Ultrasonography of Superior Vena Cava, Guidance (ICD-10-PCS; 2022-03-01)
DX: A41.9 Sepsis, unspecified organism (principal); J69.0 Pneumonitis due to inhalation of food and vomit; J96.01 Acute respiratory failure with hypoxia; R65.21 Severe sepsis with septic shock; G91.2 (Idiopathic) normal pressure hydrocephalus; E27.40 Unspecified adrenocortical insufficiency; Z86.16 Personal history of COVID-19; Q90.9 Down syndrome, unspecified; Z20.822 Contact with and (suspected) exposure to COVID-19; Z66 Do not resuscitate; Z51.5 Encounter for palliative care; Z79.01 Long term (current) use of anticoagulants; R13.10 Dysphagia, unspecified; E03.9 Hypothyroidism, unspecified; Z86.718 Personal history of other venous thrombosis and embolism; Z98.2 Presence of cerebrospinal fluid drainage device; E86.0 Dehydration; E83.42 Hypomagnesemia; E87.6 Hypokalemia
CPT/HCPCS: 36415; 71045-TC; 80048-TC; 80076-TC; 82533; 83605-TC; 83735-TC; 83880; 84443-TC; 84484-TC; 85025-TC; 87040-TC; 87081-TC; 92526; 92611-TC; 94760-TC; 94762-TC; 94799-TC; 97112-TC; 97530-TC; C9803; G0378; J1650; J1720; J2543; J3370; J3475; J3480; J3490; J7030; J7040; J7050; J7060; Q9967

== ENCOUNTER 2022-03-09 18:39 | Inpatient (IN) | payer OTHER ==
[~2022-03-09 18:39] MED LIST: ACET-868 PO; APIX2.5T PO; ASCO500T21 PO; AZIT250T13 PO; BISA10SU11 RC; CEFT1VIA15 IV; CYAN-51 PO; DOCU-141 PO; FAMO20TA8 PO; IPRA3AMP23 IH; LEVO25TA7 PO; MAGN400O6 PO; MEGE400O4 PO; MIRT-119 PO; MULT-447 PO; NA P133E RC; ONDA4TAB5 PO; RISP0.2515 PO; SENN-18 PO; TRAM-351 PO
[2022-03-09 20:00] VITALS: BP 82/51
[2022-03-09] MEDS ORDERED: KEY,NONCONTROL,TO KEEP IN PYXI 1 EA MC ONE (22:55)
[2022-03-09] MEDS: MORPHINE SULFATE/PF 30 MG in IV NS 0.9% 27 ML, PCA TOTAL VOLUME 1 BAG IV PRN ×3 (23:09)
[2022-03-10] VITALS: BP 91/37
[2022-03-10 04:00] VITALS: BP 102/38
[2022-03-10 12:00] VITALS: BP 82/41
[2022-03-10] MEDS ORDERED: KEY,NONCONTROL,TO KEEP IN PYXI 1 EA MC ONE ×2 (13:08→21:09)
[2022-03-10] MEDS: MORPHINE SULFATE/PF 30 MG in IV NS 0.9% 27 ML, PCA TOTAL VOLUME 1 BAG IV PRN ×6 (13:34→21:13)
[2022-03-10 16:00] VITALS: BP 82/41
[2022-03-10 20:00] VITALS: BP 75/45
[2022-03-11 00:01] VITALS: BP 75/45
[2022-03-11 04:00] VITALS: BP 75/45
[2022-03-11 08:00] VITALS: BP 74/37
[2022-03-11] MEDS: MORPHINE SULFATE/PF 30 MG in IV NS 0.9% 27 ML, PCA TOTAL VOLUME 1 BAG IV PRN ×6 (12:31→21:03)
[2022-03-11] MEDS ORDERED: KEY,NONCONTROL,TO KEEP IN PYXI 1 EA MC ONE ×2 (12:32→20:56)
[2022-03-11 16:00] VITALS: BP 79/47
[2022-03-11 20:00] VITALS: BP 86/52
[2022-03-12] MEDS ORDERED: KEY,NONCONTROL,TO KEEP IN PYXI 1 EA MC ONE ×3 (07:19→18:11)
[2022-03-12 08:00] VITALS: BP 92/50
[2022-03-12] MEDS: MORPHINE SULFATE/PF 30 MG in IV NS 0.9% 27 ML, PCA TOTAL VOLUME 1 BAG IV PRN ×3 (11:40)
[2022-03-12 12:00] VITALS: BP 91/52
[2022-03-12 16:00] VITALS: BP 89/56
[2022-03-12 20:00] VITALS: BP 87/51
[2022-03-13] VITALS: BP 85/44
[2022-03-13 04:00] VITALS: BP 74/42
[2022-03-13 08:00] VITALS: BP 79/47
[2022-03-13 12:00] VITALS: BP 82/57
[2022-03-13] MEDS ORDERED: KEY,NONCONTROL,TO KEEP IN PYXI 1 EA MC ONE (14:50)
[2022-03-13 16:00] VITALS: BP 73/34
[2022-03-13 20:00] VITALS: BP 78/56
[2022-03-14] VITALS: BP 71/47
[2022-03-14 04:00] VITALS: BP 74/39
== END 2022-03-14 04:15 | DRG 133 ==
LOC: HOSPICE1 18:39
PROVIDERS: ADMIT Internal Medicine; ATTEND Internal Medicine
DX: J96.01 Acute respiratory failure with hypoxia (principal); J69.0 Pneumonitis due to inhalation of food and vomit; G93.1 Anoxic brain damage, not elsewhere classified; Z20.822 Contact with and (suspected) exposure to COVID-19; Z51.5 Encounter for palliative care; Q90.9 Down syndrome, unspecified; E03.9 Hypothyroidism, unspecified; Z79.51 Long term (current) use of inhaled steroids; Z79.01 Long term (current) use of anticoagulants; Z79.899 Other long term (current) drug therapy
CPT/HCPCS: G0378; J2274; J7060